=== PATIENT | female | born 1980 | race Caucasian/White ===

== ENCOUNTER 2025-01-03 09:16 | Day surgery (SDC) | payer BC ==
[2024-12-24 11:11] LABS: MEAN PLATELET VOLUME 9.3 FL (7.4-10.4); PRE OP HEMATOCRIT 41.2 % (35.0-45.0); PRE OP HEMOGLOBIN 14.1 g/dL (12.0-16.0); PRE OP PLATELET COUNT 276 X10'3 (140-440); PRE OP WHITE BLOOD COUNT 6.9 10'3 (4.8-10.8); RED CELL DISTRIBUTION WIDTH 12.4 % (11.5-14.5)
[2024-12-24 11:15] LABS: URINE HCG NEGATIVE (NEG)
[~2025-01-03] VITALS: Ht 157.5 cm; Wt 54.3 kg
[2025-01-03] VITALS (11 sets, daily range): BP systolic 109–135; BP diastolic 65–84; PULSE 45–76; RESP 10–16; TEMP 98.6; O2SAT 98–100
[2025-01-03] MEDS: ceFOXitin 2GM-NS 100mL ADDvant 100 ML IV ONE (05:30)
[~2025-01-03 09:16] MED LIST: BUSP10TA4 PO
[2025-01-03] MEDS ORDERED: HYDROmorphone/PF 0.2 MG/ML SYRINGE IV PRN ×2 (10:05)
[2025-01-03] MEDS ORDERED: labetalol 20mg/4ml (5mg/ml) syringe IV PRN (10:05)
[2025-01-03] MEDS ORDERED: ondansetron/PF 4mg/2ml inj IV PRN (10:05)
[2025-01-03] MEDS ORDERED: morphine 4 MG/ML inj SYRINge IV PRN (10:05)
[2025-01-03] MEDS ORDERED: ringers solution, lacted 1,000 ML IV SCH (10:05)
[2025-01-03] MEDS ORDERED: hydrALAZINE 20mg/ml inj. IV PRN (10:05)
[2025-01-03] MEDS: ringers solution, lacted 1,000 ML IV SCH (10:23)
[2025-01-03] MEDS ORDERED: BUPIVAcaine 0.25% w/Epi /PF 30ml vial ONE (11:27)
[2025-01-03] MEDS ORDERED: fentaNYL/PF 50MCG/1 ML 2ML syringe ONE (11:38)
[2025-01-03] MEDS ORDERED: midazolam 1 mg/ML 2ml injection ONE (11:42)
[2025-01-03] MEDS ORDERED: propofol inj 20 ML IV ONE (11:49)
[2025-01-03] MEDS ORDERED: LIDOcaine 2% (20mg/ml) 5ml vial ONE (11:50)
[2025-01-03] MEDS ORDERED: dexamethasone sod phosphate 4mg/ml inj. ONE (12:11)
[2025-01-03] MEDS ORDERED: ondansetron/PF 4mg/2ml inj ONE (12:11)
[2025-01-03] MEDS: BUPIVAcaine 0.25% w/Epi /PF 30ml vial IJ ONE (12:23)
[2025-01-03] MEDS: morphine 4 MG/ML inj SYRINge IV PRN (12:27)
[2025-01-03] MEDS: acetaminophen 1,000mg/100ml IV 100 ML IV PRN (12:28)
[2025-01-03] MEDS: oxyCODONE IR 5mg (immed. release) tablet PO STA (13:17)
--- NOTE | 2025-01-03 13:24 | OPERATIVE REPORT ---
DATE OF SURGERY: 01/03/2025 DICTATING PHYSICIAN: Leroy Delatorre MD PREOPERATIVE DIAGNOSIS: Menorrhagia. POSTOPERATIVE DIAGNOSIS: Menorrhagia. PROCEDURE: 1. Hysteroscopy, dilation and curettage. 2. NovaSure endometrial ablation. SURGEON: Leroy Delatorre MD ELECTRICIAN MARINE: Dr. Gama. ANESTHESIA: General anesthetic. COMPLICATIONS: None. ESTIMATED BLOOD LOSS: Minimal. MEDICATIONS: IV antibiotics preoperatively. SPECIMENS: Endometrial curettage. PRINCIPAL FINDINGS: Normal uterine cavity. DESCRIPTION OF PROCEDURE: General anesthesia was found to be adequate. The patient was placed in low lithotomy. The patient was prepped and draped in the normal sterile fashion. The bladder was drained of urine. A posterior speculum was placed in the vagina. A tenaculum was placed on the anterior lip of the cervix. A 0.25% Marcaine paracervical block was performed. The cervix was progressively and easily dilated to 7 mm and then a 30-degree hysteroscope was introduced transcervically into the uterine cavity under direct visualization. Both tubal ostia were visualized and normal. There were no masses or lesions within the uterine cavity. The hysteroscope was removed. A gentle sharp curettage was performed. Tissue was sent to pathology. A NovaSure endometrial ablation cycle was then performed without complication. The device was inserted. The cavity length was 5 cm. Cavity width was 2.5 cm. There was a normal cavity assessment. A normal minute and 52 second endometrial ablation cycle was performed without complication. The device was removed. The tenaculum was removed from the anterior lip of the cervix. Excellent hemostasis was observed. General anesthesia was reversed. The patient was taken out of lithotomy and transferred to the recovery room in stable condition. Leroy Delatorre MD TID: [id number] RECE[place]: [id number] [place] [place]
== END 2025-01-03 13:56 | disposition home or self-care (01) ==
LOC: PAS 09:16
PROVIDERS: ATTEND Specialist
DX: N92.0 Excessive and frequent menstruation with regular cycle (principal); F41.9 Anxiety disorder, unspecified; Z87.891 Personal history of nicotine dependence; Z79.891 Long term (current) use of opiate analgesic; Z79.899 Other long term (current) drug therapy; Z98.890 Other specified postprocedural states; Z83.3 Family history of diabetes mellitus
CPT/HCPCS: 36415; 58563; 81025; 82948; 85025; J0131; J0665; J0694; J1100; J2003; J2250; J2270; J2405; J2704; J3010; J7030; J7120; Z7506; Z7512; A4355; A4618; A4649; A6258; A7000

== ENCOUNTER 2025-01-31 08:11 | Outpatient (CLI) | payer BC ==
--- NOTE | 2025-01-31 10:09 | RADIOLOGY REPORT ---
CLINICAL INDICATION: LEFT SHOULDER PAIN COMPARISON: None. TECHNIQUE: Multiplanar, multisequence MRI of the left shoulder was performed without contrast. Contrast: None FINDINGS: Glenohumeral joint: There is no fracture or bone marrow edema. Alignment is maintained. No focal articular cartilage defect. There is no joint effusion or synovitis. Acromioclavicular joint: The acromioclavicular joint is narrowed with capsular hypertrophy. There is a type 1 acromion. Rotator cuff and bursae: The supraspinatus tendon is thickened with T2 hyperintensity consistent with severe tendinosis. The infraspinatus, subscapularis and teres minor tendons are intact. There is no regional muscle atrophy. There is fluid in the subacromial subdeltoid bursa. Biceps tendon and glenoid labrum: The long head biceps tendon is located within the bicipital groove and intact. The labrum is unremarkable. IMPRESSION: 1. Severe supraspinatus tendinosis. No full-thickness rotator cuff tear. 2. Subacromial subdeltoid bursitis. 3. Mild acromioclavicular joint hypertrophy.
--- NOTE | 2025-01-31 13:42 | RADIOLOGY REPORT ---
PROCEDURE: MRI cervical spine without contrast. INDICATION: CERVICALGIA COMPARISON: MR MRI UPPER EXTREMITY LEFT on DOS: 01/31/25 TECHNIQUE: MRI of the cervical spine without intravenous contrast utilizing multiplanar, multisequence technique. FINDINGS: The alignment of the cervical spine vertebral bodies is preserved. The vertebral body heights are maintained. The intervertebral disc spaces are maintained in height and signal characteristics. The bone marrow signal is homogenous and unremarkable. The cervical spinal cord is normal in signal characteristics and caliber. Posterior fossa structures are unremarkable. No cerebellar tonsillar herniation. Paraspinal muscles are unremarkable. At the C2-C3 level, there is no evidence of central spinal canal or neuroforaminal stenosis. At the C3-C4 level, there is no evidence of central spinal canal or neuroforaminal stenosis. At the C4-C5 level, there is no evidence of central spinal canal or neuroforaminal stenosis. At the C5-C6 level, there is no evidence of central spinal canal or neuroforaminal stenosis. At the C6-C7 level, there is no evidence of central spinal canal or neuroforaminal stenosis. At the C7-T1 level, there is no evidence of central spinal canal or neuroforaminal stenosis. Other: None. IMPRESSION: 1. No evidence of disc herniation, significant spinal or neural foraminal stenosis in the cervical spine. No cervical spinal cord signal abnormality or compression.
== END 2025-01-31 23:59 | disposition home or self-care (01) ==
LOC: MRI 08:11
PROVIDERS: ATTEND Physician Assistant
DX: M75.102 Unspecified rotator cuff tear or rupture of left shoulder, not specified as traumatic (principal); M25.512 Pain in left shoulder; M54.2 Cervicalgia; M89.312 Hypertrophy of bone, left shoulder; M75.52 Bursitis of left shoulder
CPT/HCPCS: 72141; 73221